=== PATIENT | female | born 1985 | race Caucasian/White ===

== ENCOUNTER 2017-04-21 09:58 | Outpatient (CLI) | payer OTHER | END 2017-04-21 10:23 | disposition home or self-care (01) | LOC: LAB 09:58 | DX: E23.0 Hypopituitarism (principal); E55.9 Vitamin D deficiency, unspecified; E27.1 Primary adrenocortical insufficiency; E03.8 Other specified hypothyroidism ==

== ENCOUNTER 2017-04-23 08:57 | Outpatient (CLI) | payer OTHER | END 2017-04-23 09:03 | disposition home or self-care (01) | LOC: LAB 08:57 | DX: E03.8 Other specified hypothyroidism (principal) ==

== ENCOUNTER 2020-04-22 11:29 | Outpatient (CLI) | payer OTHER | END 2020-04-22 16:50 | disposition home or self-care (01) | LOC: OFIC 805 11:29 | PROVIDERS: ATTEND Otolaryngology Otology & Neurotology | DX: J30.89 Other allergic rhinitis (principal); H69.81 Other specified disorders of Eustachian tube, right ear ==

== ENCOUNTER 2021-03-03 12:30 | Outpatient (CLI) | payer OTHER | END 2021-03-03 12:31 | disposition home or self-care (01) | LOC: LAB 12:30 | PROVIDERS: ATTEND Internal Medicine | DX: M43.8X4 Other specified deforming dorsopathies, thoracic region (principal); I10 Essential (primary) hypertension; N39.0 Urinary tract infection, site not specified; E78.89 Other lipoprotein metabolism disorders; E06.5 Other chronic thyroiditis; E55.9 Vitamin D deficiency, unspecified; M99.01 Segmental and somatic dysfunction of cervical region; M99.02 Segmental and somatic dysfunction of thoracic region; M99.03 Segmental and somatic dysfunction of lumbar region ==